=== PATIENT | female | born 1940 | race Asian ===

== ENCOUNTER 2022-03-21 17:24 | Emergency (ER) | payer MEDICARE, OTHER ==
[~2022-03-21] VITALS: Ht 147.3 cm; Wt 44.5 kg
[2022-03-21] MEDS ORDERED: GADOTERATE MEGLUMINE 5 MMOL/10 ML VIAL IV ONE (17:25)
--- NOTE | 2022-03-21 17:25 | NUR ---
RECEIVED PT 82 YRS FEMALE FROM HOME C/O LOWER BACK PAIN S/P FELL DOWN BACK PAIN LAST BM 03/19/22 C/O CONSPATION
[2022-03-21] MEDS ORDERED: MINERAL OIL 133 ML (PYXIS) 1 EA ENEMA RC ONE ×2 (18:00→18:22)
--- NOTE | 2022-03-21 18:15 | NUR ---
BLOOD DROW AT BED SIDE
[2022-03-21] MEDS ORDERED: NA PHOS,M-B/NA PHOS,DI-BA 1 EA ENEMA RC ONE (18:18)
--- NOTE | 2022-03-21 18:25 | NUR ---
TO CT DEL RIO OF ABDOMIN
--- NOTE | 2022-03-21 18:30 | NUR ---
UA SENT TO LAB
--- NOTE | 2022-03-21 18:35 | NUR ---
FLEET MINERAL OIL HAILY DONE AT BED SIDE
[2022-03-21 19:10] LABS: ALANINE AMINOTRANSFERASE 21 U/L (12-78); ALBUMIN 3.3 g/dL (3.4-5.0); ALKALINE PHOSPHATASE 66 U/L (46-116); ASPARTATE AMINOTRANSFERASE 29 U/L (15-37); BILIRUBIN,DIRECT 0.2 mg/dL (0.0-0.2); BILIRUBIN,TOTAL 0.6 mg/dL (0.2-1.0); CALCIUM, SERUM 8.1 mg/dL (8.5-10.1); CARBON DIOXIDE 25 mmol/L (21-32); CHLORIDE 103 mmol/L (98-107); CREATININE 1.5 mg/dL (0.6-1.3); GLUCOSE 105 mg/dL (74-106); POTASSIUM 4.1 mmol/L (3.5-5.1); SODIUM SERUM 136 mmol/L (136-145); TOTAL PROTEIN, SERUM 7.3 g/dL (6.4-8.2); UREA NITROGEN, BLOOD 28 mg/dL (7-18)
--- NOTE | 2022-03-21 19:29 | NUR ---
NO BM HAND OFF NATHEN STREETER
--- NOTE | 2022-03-21 19:40 | NUR ---
covid swab collected
[2022-03-21 19:44] LABS: BILIRUBIN,URINE NEGATIVE (NEGATIVE); COLOR,URINE YELLOW (YELLOW); LEUKOCYTE ESTERASE ,URINE 2+ (NEGATIVE); NITRITE, URINE NEGATIVE (NEGATIVE); PROTEIN,URINE NEGATIVE (NEGATIVE); UGLUCOSE NEGATIVE (NEGATIVE); UROBILINOGEN,URINE 0.2 EU/dL (0.2)
[2022-03-21] MEDS ORDERED: LEVOFLOXACIN 500 MG /D5W 100ML 500 MG/100 ML PIGGYBACK IV ONE (20:00)
[2022-03-21] MEDS ORDERED: ONDANSETRON HCL/PF 4 MG/2 ML VIAL IVP ONE (20:00)
[2022-03-21] MEDS ORDERED: MORPHINE SULFATE INJ 2 MG/ML DISP.SYRIN IV ONE ×2 (20:00→21:00)
[2022-03-21 20:34] LABS: BASOPHILS % (AUTO) 0.4 % (0.0-2.0); EOSINOPHILS % (AUTO) 0.7 % (0.0-6.0); HEMATOCRIT 35 % (33-45); HEMOGLOBIN 11.5 g/dL (11.5-14.8); LYMPHOCYTES % (AUTO) 15.9 % (20.0-44.0); MEAN CORPUSCULAR HGB CONC 33 g/dl (31.0-36.0); MEAN CORPUSCULAR VOLUME 91 fL (82-100); MONOCYTES # (AUTO) 0.6 K/uL (0.1-1.30); MONOCYTES % (AUTO) 8.6 % (2.0-12.0); NEUTROPHILS # (AUTO) 4.9 K/uL (1.8-8.9); NEUTROPHILS % (AUTO) 74.4 % (43.0-81.0); PLATELET COUNT (AUTO) 147 K/uL (150-450); RED BLOOD CELL COUNT(AUTO) 3.85 MIL/uL (4.0-5.2); WHITE BLOOD COUNT (AUTO) 6.6 K/uL (4.3-11.0)
[2022-03-21] MEDS ORDERED: ATOR20TA PO (20:40)
[2022-03-21] MEDS ORDERED: LOSA100T31 PO (20:40)
[2022-03-21] MEDS ORDERED: CLON0.1T PO (20:40)
[2022-03-21] MEDS ORDERED: METO-358 PO (20:40)
[2022-03-21] MEDS ORDERED: LEVOFLOXACIN 500 MG /D5W 100ML 100 ML IV ONE (20:49)
[2022-03-21] MEDS ORDERED: ONDANSETRON HCL/PF - ER 4 MG/2 ML VIAL IV ONE (21:00)
[2022-03-21 21:41] LABS: BACTERIA,URINE Rare /HPF (None Seen); SQUAMOUS EPITHELIAL CELL,UR Few /HPF (None Seen)
--- NOTE | 2022-03-21 22:24 | NUR ---
BLADDER SCAN 75 ML NOTED ER MADE AWARE
--- NOTE | 2022-03-21 22:27 | NUR ---
CN MADE AWARE
--- NOTE | 2022-03-21 22:27 | NUR ---
RECEIVED A CALL FROM SELENA STREETER OF [facility]. THEY CANNOT ACCEPT PT AT [facility] DUE TO NO ROOM AVAILABILITY
--- NOTE | 2022-03-21 22:35 | NUR ---
[facility] CALLED FOR HIGHER LEVEL OF CARE. PER AZAR NO CAPACITY.
--- NOTE | 2022-03-21 22:37 | NUR ---
[facility] CALLED FOR HIGHER LEVEL OF CARE. NO CAPACITY PER JOSE CARLOS .
--- NOTE | 2022-03-21 22:51 | NUR ---
[facility] CALLED FOR HIGHER LEVEL OF CARE. NO CAPACITY.
--- NOTE | 2022-03-21 23:01 | NUR ---
[facility] CALLED FOR HIGHER LEVEL OF CARE. NO CAPACITY
--- NOTE | 2022-03-21 23:15 | NUR ---
[facility] CALLED FOR HIGHER LEVEL OF CARE. NO CAPACITY.
[2022-03-21] MEDS ORDERED: MORPHINE SULFATE INJ 2 MG/ML DISP.SYRIN ONE (23:51)
[2022-03-21] MEDS ORDERED: ONDANSETRON HCL/PF 4 MG/2 ML VIAL ONE (23:51)
--- NOTE | 2022-03-22 07:15 | NUR ---
RECEVED PT FROM NATHEN RN PT ASLEEPY ARUSPLE WHEN CALL NAME RESPIRATION SPONT AND EASY
--- NOTE | 2022-03-22 07:26 | NUR ---
Jacques clevel[place] in ED - 03/22/22 at 0740 by MCKAYLA left wrist reduction procedure . 90 mg propofol ivp as ordered,MD STREETER RT EMT present at bedside
--- NOTE | 2022-03-22 08:43 | NUR ---
RADIOLOGY CALLED FOR XRAY
--- NOTE | 2022-03-22 09:06 | NUR ---
RESTING AND COMFOTABLE IN [facility]
--- NOTE | 2022-03-22 09:30 | NUR ---
TO MRI VIA [facility] ZACARIAS VS
--- NOTE | 2022-03-22 10:30 | NUR ---
BACK FROM MRI DONE
--- NOTE | 2022-03-22 11:00 | NUR ---
PT VODING FREELY DAPHNIE ABOUT 400ML BSC
[2022-03-22] MEDS ORDERED: AMLODIPINE BESYLATE 5 MG TABLET PO ONE (14:00)
[2022-03-22] MEDS ORDERED: AMLODIPINE BESYLATE 5 MG TABLET ONE (14:06)
--- NOTE | 2022-03-22 14:13 | NUR ---
WATNYASIA FOR MRI RESULT
--- NOTE | 2022-03-22 15:04 | NUR ---
CALL FROM MRI WITH READING: MRI L SPINE ACUTE SEVERE L1 COMPRESSION FRACTURE,7 mm RETROPULSION CONTRIBUTE TO SEVERE SPINAL CANAL STENOSIS TO 3 mm AP CORRESPONDING TO TIP OF CONUS WITH COMPRESSION SUSPECTED 4 mm. 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 PARTIALLY IMAGED DISTENDED BLADDER. CONSIDER EMERGENT BLADDER DECOMPRESSION WITH TORRES.
--- NOTE | 2022-03-22 15:10 | NUR ---
PT DINESIS ANY BLADDER DISTENTION OR PAIN AT THIS TIME
--- NOTE | 2022-03-22 15:30 | NUR ---
SENT PT INFORMATION TO [facility] FAX NUMBER
--- NOTE | 2022-03-22 16:30 | NUR ---
NO CHANGE PT CONDITION STABLE RESTING NO PAIN
--- NOTE | 2022-03-22 17:43 | NUR ---
RESTING AND ASLEEPY NO SOB OR DISTRESS AT THIS TIME
--- NOTE | 2022-03-22 18:04 | NUR ---
- DAUGHTER PHONE FOR POINT OF CONTACT UPON TRANSFER
--- NOTE | 2022-03-22 18:06 | NUR ---
[facility]
[2022-03-22] MEDS ORDERED: LOSARTAN POTASSIUM 50 MG TABLET ONE (18:14)
[2022-03-22] MEDS ORDERED: LOSARTAN POTASSIUM 25 MG TABLET PO ONE (18:30)
--- NOTE | 2022-03-22 19:19 | NUR ---
ACCETPED AT [place] [id number] REPORT [phone] ETA WILL CALL BACK
--- NOTE | 2022-03-22 19:27 | NUR ---
PLATE GAUGER WITH [facility] [id number]
--- NOTE | 2022-03-22 19:31 | NUR ---
HAND OFF NATHEN RN
--- NOTE | 2022-03-22 20:30 | NUR ---
CALLED FOR REPORT NURSE NOT AVAILABLE, WILL CALL BACK
--- NOTE | 2022-03-22 21:00 | NUR ---
REPORT GIVEN TO NURSE ANTOINE
--- NOTE | 2022-03-22 23:22 | NUR ---
REPORT GIVEN TO EMS AT BEDSIDE
[2022-03-22 23:39] VITALS: BP 115/71
== END 2022-03-22 23:39 | disposition short-term general hospital (02) ==
LOC: ER 17:24
DX: S32.019A Unspecified fracture of first lumbar vertebra, initial encounter for closed fracture (principal); W01.0XXA Fall on same level from slipping, tripping and stumbling without subsequent striking against object, initial encounter; Y92.89 Other specified places as the place of occurrence of the external cause; E78.5 Hyperlipidemia, unspecified; K59.00 Constipation, unspecified; I12.9 Hypertensive chronic kidney disease with stage 1 through stage 4 chronic kidney disease, or unspecified chronic kidney disease; N18.9 Chronic kidney disease, unspecified; Z88.0 Allergy status to penicillin; K80.20 Calculus of gallbladder without cholecystitis without obstruction; N39.0 Urinary tract infection, site not specified; Z20.822 Contact with and (suspected) exposure to COVID-19
CPT/HCPCS: 99285; 74176; 96365; 96375 ×2; 87426; 85025; 80048; 87086; 80076; 81001; 36415; 87081; 72158; J2405; J1956; J2270; A9575; C9803

== ENCOUNTER 2024-03-23 01:26 | Emergency (ER) | payer MEDICARE, OTHER ==
[~2024-03-23] VITALS: Ht 149.9 cm; Wt 61.2 kg
[~2024-03-23 01:26] MED LIST: ATOR20TA PO; CLON0.1T PO; LOSA100T31 PO; METO-358 PO
[2024-03-23 07:53] VITALS: BP 143/74; TEMP 98.8; O2SAT 99
== END 2024-03-23 07:53 | disposition home or self-care (01) ==
LOC: ER 01:27
DX: S01.81XA Laceration without foreign body of other part of head, initial encounter (principal); M54.2 Cervicalgia; R60.0 Localized edema; I12.9 Hypertensive chronic kidney disease with stage 1 through stage 4 chronic kidney disease, or unspecified chronic kidney disease; N18.9 Chronic kidney disease, unspecified; Z79.899 Other long term (current) drug therapy; Z88.0 Allergy status to penicillin; W01.0XXA Fall on same level from slipping, tripping and stumbling without subsequent striking against object, initial encounter; Y93.89 Activity, other specified; Y92.89 Other specified places as the place of occurrence of the external cause; Y99.8 Other external cause status
CPT/HCPCS: 99285; 72125; 12013; 70450; 70486; A6403